=== PATIENT | male | born 2000 | race Caucasian/White ===

== ENCOUNTER 2020-12-20 18:04 | Emergency (ER) | payer OTHER ==
[~2020-12-20] VITALS: Ht 177.8 cm; Wt 61.2 kg
[2020-12-20] MEDS ORDERED: AMOXICILLIN 50500 M1 PO (20:02)
[2020-12-20] MEDS ORDERED: TRAMADOL 50 MG50 MG PO (20:03)
[2020-12-20 20:07] VITALS: BP 122/64
== END 2020-12-20 20:07 | disposition home or self-care (01) ==
LOC: M.ERS 18:04
DX: K08.89 Other specified disorders of teeth and supporting structures (principal)